=== PATIENT | male | born 1965 | race Caucasian/White ===

== ENCOUNTER 2016-12-19 17:37 | Emergency (ER) | payer OTHER ==
[2016-12-19] MEDS ORDERED: Sodium Chloride 0.9% 10 ML Syringe FLUSH PRN (17:50)
[2016-12-19] MEDS ORDERED: Sodium Chloride 0.9% 2.5 ML Syringe FLUSH PRN (17:50)
[2016-12-19] MEDS ORDERED: Aspirin 81 MG Tab.Chew PO ONE (17:50)
[2016-12-19] MEDS ORDERED: fentaNYL 100 MCG/2 ML SDV IVPUSH ONE (17:50)
[2016-12-19] MEDS ORDERED: Acetaminophen 325 MG Tab PO ONE (17:50)
[2016-12-19] MEDS ORDERED: Sodium Chloride 0.9% 1,000 ML IV ONE ×2 (17:50→18:05)
[2016-12-19] MEDS: Nitroglycerin 0.4 MG Tab.SL SL PRN ×3 (17:55→18:05)
--- NOTE | 2016-12-19 18:09 | EDM.PDOC ---
ED HPI GENERAL MEDICAL PROBLEM - General Chief Complaint: Chest Pain Stated Complaint: CHEST PAIN/TROUBLE BREATHING Time Seen by Provider: 12/19/16 17:48 - History of Present Illness INITIAL COMMENTS - FREE TEXT/NARRATIVE: HISTORY AND PHYSICAL: History of present illness: Patient is a 51-year-old white male history of [id number] diabetes adjustments or other acute onset of chest pain is left-sided radiating somewhat to his left back with associated diaphoresis shortness of breath he has equivocal nausea no vomiting he denies palpitations he was scheduled for stress test next week for not feeling well generally. He denies prior coronary artery disease known to him or CVA. This pain is without palliating her and everything factors including position Review of systems: As per history of present illness and below otherwise all systems reviewed and negative. Past medical history: As per history of present illness and as reviewed below otherwise noncontributory. Surgical history: As per history of present illness and as reviewed below otherwise noncontributory. Social history: No reported history of drug or alcohol abuse. Family history: As per history of present illness and as reviewed below otherwise noncontributory. Physical exam: HEENT: Atraumatic, normocephalic, pupils reactive, negative for conjunctival pallor or scleral icterus, mucous membranes moist, throat clear, neck supple, nontender, trachea midline. Profuse diaphoresis noted Lungs: Clear to auscultation, breath sounds equal bilaterally, chest nontender. Heart: S1S2, regular, negative for clicks, rubs, or JVD. Abdomen: Soft, nondistended, nontender. Negative for masses or hepatosplenomegaly. Negative for costovertebral tenderness. Pelvis: Stable nontender. Genitourinary: Deferred. Rectal: Deferred. Extremities: Atraumatic, negative for cords or calf pain. Neurovascular unremarkable. Neuro: Awake, alert, oriented. Cranial nerves II through XII unremarkable. Cerebellum unremarkable. Motor and sensory unremarkable throughout. Exam nonfocal. Diagnostics: CBC CMP PT INR troponin d-dimer lactic acid blood culture x2 chest x-ray EKG Therapeutics: IV O2 monitor aspirin 324 mg sublingual mitral glycerin every 5x3 fentanyl 50 mcg IV Impression: #1 chest pain/acute coronary syndrome I discussed case with cardiology and faxed EKG for review patient will be transferred by air medical further interventions will be in consultation with cardiology Definitive disposition and diagnosis as appropriate pending reevaluation and review of above. - Related Data Allergies Allergy/AdvReac Type Severity Reaction Status Date / Time grass pollen-perennial rye, Allergy Mild Sneezing Verified 08/02/15 15:06 standar [grass poll-perennial rye,std] house dust Allergy Mild Sneezing Verified 08/02/15 15:06 oxycodone [Oxycodone] AdvReac Hallucinati Verified 08/02/15 15:06 ons Home Meds: Home Meds Ascorbate Calcium [Vitamin C] 500 mg PO DAILY@0600 06/02/14 [History] Cholecalciferol (Vitamin D3) [Vitamin D] 5,000 unit PO DAILY@0600 06/02/14 [ History] Cyanocobalamin (Vitamin B-12) [B-12] 1,000 mcg PO DAILY@0600 06/02/14 [History] Liraglutide [Victoza] 1.8 mg SUBCUT DAILY@0630 06/02/14 [History] Lisinopril [Prinivil] 20 mg PO DAILY@0600 06/02/14 [History] [place]olia-3/DHA/Epa/Fish Oil [Fish Oil 1,400 MG Softgel] 1,500 mg PO BID@0600,1800 06/02/14 [History] atorvaSTATin Calcium [Atorvastatin Calcium] 40 mg PO DAILY@0600 06/02/14 [ History] glipiZIDE [Glipizide ER] 5 mg PO DAILY@0600 06/02/14 [History] metFORMIN [Glucophage XR] 1,000 mg PO BID@0600,1800 06/02/14 [History] Vitamin B Complex & Vit C No.4 [Super B Complex] 150 mg PO DAILY 03/30/15 [ History] Past Medical History Other Gastrointestinal History: Heartburn Other Genitourinary History: Hernia Repair Social & Family History - Tobacco Use Smoking Status *Q: Former Smoker Years of Tobacco use: 20 Used Tobacco, but Quit: No Month Tobacco Last Used: 5 years ago Second Hand Smoke Exposure: No - Alcohol Use Days Per Week of Alcohol Use: 0 - Recreational Drug Use Recreational Drug Use: No Drug Use in Last 12 Months: No ED ROS GENERAL - Review of Systems Review Of Systems: ROS reveals no pertinent complaints other than HPI. ED EXAM, GENERAL - Physical Exam Exam: See Below (See dictation) Course - Orders/Labs/Meds Orders: Active Orders 24 hr Category Date Time Status Cardiac Monitoring [RC] . DIRECTED Care 12/19/16 17:49 Ordered EKG Documentation Completion [RC] STAT Care 12/19/16 17:49 Ordered Oxygen Therapy, ED [RC] ASDIRECTED Care 12/19/16 17:49 Ordered Chest 1V Frontal [CR] Stat Exams 12/19/16 17:50 Ordered B-TYPE NATRIURETIC PEPTIDE,BNP [CHEM] Stat Lab 12/19/16 17:49 Ordered CBC WITH AUTO DIFF [HEME] Stat Lab 12/19/16 17:49 Ordered COMPREHENSIVE METABOLIC PN,CMP [CHEM] Stat Lab 12/19/16 17:49 Ordered D-DIMER QUANTITATIVE [COAG] Stat Lab 12/19/16 17:49 Ordered INR,PT,PROTHROMBIN TIME [COAG] Stat Lab 12/19/16 17:49 Ordered TROPONIN I [CHEM] Stat Lab 12/19/16 17:49 Ordered Sodium Chloride 0.9% [Normal Saline] 1,000 ml Med 12/19/16 17:50 Ordered IV STAT Sodium Chloride 0.9% [Saline Flush] Med 12/19/16 17:50 Ordered 10 ml FLUSH ASDIRECTED PRN Sodium Chloride 0.9% [Saline Flush] Med 12/19/16 17:50 Ordered 2.5 ml FLUSH ASDIRECTED PRN Saline Lock Insert [OM.PC] Stat Oth 12/19/16 17:49 Ordered Medication Orders Sodium Chloride (Normal Saline) 1,000 mls @ 999 mls/hr IV STAT ONE Stop: 12/19/16 18:50 Sodium Chloride (Saline Flush) 10 ml FLUSH ASDIRECTED PRN PRN Reason: Keep Vein Open Sodium Chloride (Saline Flush) 2.5 ml FLUSH ASDIRECTED PRN PRN Reason: Keep Vein Open Labs: Laboratory Tests 12/19/16 Range/Units 17:49 Lactate 2.7 H (0.20-2.00) mmol/L Meds: Medications Generic Name Dose Route Start Last Admin Trade Name Freq PRN Reason Stop Dose Admin Sodium Chloride 1,000 mls @ 999 mls/hr 12/19/16 17:50 Normal Saline IV 12/19/16 18:50 STAT ONE Sodium Chloride 10 ml 12/19/16 17:50 Saline Flush FLUSH ASDIRECTED PRN Keep Vein Open Sodium Chloride 2.5 ml 12/19/16 17:50 Saline Flush FLUSH ASDIRECTED PRN Keep Vein Open Discontinued Medications Generic Name Dose Route Start Last Admin Trade Name Bradley PRN Reason Stop Dose Admin Acetaminophen 325 mg 12/19/16 17:50 12/19/16 17:58 Tylenol PO 12/19/16 17:51 325 mg NOW ONE Administration Aspirin 324 mg 12/19/16 17:50 12/19/16 17:56 Aspirin PO 12/19/16 17:51 324 mg ONETIME ONE Administration Fentanyl 50 mcg 12/19/16 17:50 12/19/16 17:57 Sublimaze IVPUSH 12/19/16 17:51 50 mcg ONETIME ONE Administration Nitroglycerin 0.4 mg 12/19/16 17:50 Nitrostat SL 12/19/16 18:01 Q5M PRN Chest Pain Departure - Departure Time of Disposition: 18:08 Disposition: DC/Tfer to Acute Hospital 02 Condition: good Clinical Impression: Acute coronary syndrome Forms: ED Department Discharge - My Orders Last 24 Hours: My Active Orders 12/19/16 17:49 Cardiac Monitoring [RC] . DIRECTED EKG Documentation Completion [RC] STAT Oxygen Therapy, ED [RC] ASDIRECTED B-TYPE NATRIURETIC PEPTIDE,BNP [CHEM] Stat CBC WITH AUTO DIFF [HEME] Stat COMPREHENSIVE METABOLIC PN,CMP [CHEM] Stat D-DIMER QUANTITATIVE [COAG] Stat INR,PT,PROTHROMBIN TIME [COAG] Stat TROPONIN I [CHEM] Stat Saline Lock Insert [OM.PC] Stat 12/19/16 17:50 Chest 1V Frontal [CR] Stat Sodium Chloride 0.9% [Normal Saline] 1,000 ml IV STAT Sodium Chloride 0.9% [Saline Flush] 10 ml FLUSH ASDIRECTED PRN Sodium Chloride 0.9% [Saline Flush] 2.5 ml FLUSH ASDIRECTED PRN - Assessment/Plan Last 24 Hours: My Active Orders 12/19/16 17:49 Cardiac Monitoring [RC] . DIRECTED EKG Documentation Completion [RC] STAT Oxygen Therapy, ED [RC] ASDIRECTED B-TYPE NATRIURETIC PEPTIDE,BNP [CHEM] Stat CBC WITH AUTO DIFF [HEME] Stat COMPREHENSIVE METABOLIC PN,CMP [CHEM] Stat D-DIMER QUANTITATIVE [COAG] Stat INR,PT,PROTHROMBIN TIME [COAG] Stat TROPONIN I [CHEM] Stat Saline Lock Insert [OM.PC] Stat 12/19/16 17:50 Chest 1V Frontal [CR] Stat Sodium Chloride 0.9% [Normal Saline] 1,000 ml IV STAT Sodium Chloride 0.9% [Saline Flush] 10 ml FLUSH ASDIRECTED PRN Sodium Chloride 0.9% [Saline Flush] 2.5 ml FLUSH ASDIRECTED PRN
[2016-12-19] MEDS ORDERED: fentaNYL 100 MCG/2 ML SDV IVPUSH STA (18:19)
[2016-12-19 21:23] VITALS: BP 111/64
--- NOTE | 2016-12-22 09:36 | CR ---
EXAM DATE: 12/19/16 PATIENT'S AGE: 51 Patient: ANDREA PERES Facility: [place], [place] Site . Site : [id number] Study: XRay Chest [id number] 6:15:13 PM Ordering Physician: Chavo Shen Final Report: INDICATION: chest pain COMPARISON: Chest x-ray dated 02 August 2015. FINDINGS: Two portable chest x-rays show a normal cardiac silhouette. The lungs are hypoventilated and show mild bibasilar atelectasis. Sharp pleural margins. No pneumothorax. IMPRESSION: Hypoventilated lungs with bibasilar atelectasis. Dictated by Gera Vides MD @ 12/19/2016 6:30:02 PM Dictated by: Gera Vides MD @ 12/19/2016 18:30:11 (Electronic Signature) Report Signed by Proxy and Original Signed Document filed in the Medical Record. [facility]
== END 2016-12-19 18:40 ==
LOC: MW.ED 17:37
DX: I24.9 Acute ischemic heart disease, unspecified (principal); Z88.8 Allergy status to other drugs, medicaments and biological substances; Z79.899 Other long term (current) drug therapy; Z87.891 Personal history of nicotine dependence
CPT/HCPCS: 36415; 71010; 80053; 83605; 83880; 84484; 85025; 85379; 85610; 93005; 96360; 96361; 96374; 96376; 99285; A9270; J3010; J7040

== ENCOUNTER → 2017-01-09 | Outpatient (CLI) | payer OTHER ==
[2017-01-09 10:42] LABS: CHLORIDE,CL 99 mmol/L (98-110); SODIUM,NA 134 mmol/L (136-146)
== END ==
LOC: MW.CHFP 09:11
PROVIDERS: ATTEND Student in an Organized Health Care Education/Training Program
DX: R19.5 Other fecal abnormalities (principal); R11.0 Nausea
CPT/HCPCS: 36415; 80053; 83630; 85025; 87046; 87324; 87899

== ENCOUNTER 2018-12-03 06:21 | Day surgery (SDC) | payer OTHER ==
[~2018-12-03 06:21] MED LIST: Lactated Ringers 1,000 ML IV SCH
[2018-12-03] MEDS ORDERED: Midazolam 1 MG/ML 2 ML SDV ONE (07:19)
[2018-12-03] MEDS ORDERED: fentaNYL 100 MCG/2 ML SDV ONE (07:22)
[2018-12-03] MEDS ORDERED: Lidocaine 2% 5 ML SDV ONE (07:23)
[2018-12-03] MEDS ORDERED: Propofol 200 MG/20 ML SDV ONE ×3 (07:24→08:10)
--- NOTE | 2018-12-03 07:28 | PCM.PREANE ---
Preanesthetic Assessment - Anesthesia/Transfusion/Family Hx Anesthesia History: Prior Anesthesia Without Reaction Other Type of Anesthesia Reaction Comment: slow to wake up Family History of Anesthesia Reaction: No Transfusion History: No Prior Transfusion(s) - Review of Systems General: No Symptoms Pulmonary: No Symptoms Cardiovascular: No Symptoms Gastrointestinal: No Symptoms Neurological: No Symptoms Other: Reports: None - Physical Assessment NPO Status Date: 12/02/18 Height: 5 ft 10 in Weight: 107.955 kg ASA Class: 2 Mental Status: Alert & Oriented x3 Airway Class: Mallampati = 1 Dentition: Reports: Normal Dentition ROM/Head Extension: Full Lungs: Clear to Auscultation, Normal Respiratory Effort Cardiovascular: Regular Rate, Regular Rhythm - Allergies Allergies/Adverse Reactions: Allergies Allergy/AdvReac Type Severity Reaction Status Date / Time grass pollen-perennial rye, Allergy Mild Sneezing Verified 11/29/18 12:21 standar [grass poll-perennial rye,std] house dust Allergy Mild Sneezing Verified 11/29/18 12:21 oxycodone [From OxyContin] Allergy Hallucinati Verified 11/29/18 12:21 ons - Blood Blood Available: No - Anesthesia Plan Pre-Op Medication Ordered: None - Acknowledgements Anesthesia Type Planned: General Anesthesia, MAC Pt an Appropriate Candidate for the Planned Anesthesia: Yes Alternatives and Risks of Anesthesia Discussed w Pt/Guardian: Yes Pt/Guardian Understands and Agrees with Anesthesia Plan: Yes Additional Comments: PMH: dm2, htn, hld PLAN: mac/tiva PreAnesthesia Questionnaire HEENT History: Other HEENT History: wears glasses/contacts Cardiovascular History: Reports: High Cholesterol, Hypertension Respiratory History: Reports: Sleep Apnea Other Respiratory History: uses CPAP Gastrointestinal History: Reports: None Genitourinary History: Reports: None Musculoskeletal History: Reports: None Neurological History: Reports: None Psychiatric History: Reports: None Endocrine/Metabolic History: Reports: Diabetes, Type II, Obesity/BMI 30+ Hematologic History: Reports: None Immunologic History: Reports: None Oncologic (Cancer) History: Reports: None Dermatologic History: Reports: None - Past Surgical History Head Surgeries/Procedures: Reports: None HEENT Surgical History: Reports: None Cardiovascular Surgical History: Reports: None Respiratory Surgical History: Reports: Other (See Below) Other Respiratory Surgeries/Procedures: right thoracotomy "due to infection" GI Surgical History: Reports: Cholecystectomy, Colonoscopy, EGD, Hernia, Abdominal Male Surgical History: Reports: None Endocrine Surgical History: Reports: None Neurological Surgical History: Reports: None Musculoskeletal Surgical History: Reports: Shoulder Surgery Other Musculoskeletal Surgeries/Procedures:: Left RTCR Dermatological Surgical History: Reports: None - SUBSTANCE USE Smoking Status *Q: Never Smoker Recreational Drug Use History: No - HOME MEDS Home Medications: Home Meds Ascorbate Calcium [Vitamin C] 500 mg CHEW DAILY@0600 06/02/14 [History] Cyanocobalamin (Vitamin B-12) [B-12] 1,000 mcg PO DAILY@0600 06/02/14 [History] Lisinopril [Prinivil] 20 mg PO DAILY@0600 06/02/14 [History] [place]-3/DHA/Epa/Fish Oil [Fish Oil 1,400 MG Softgel] 1,000 mg PO DAILY 06/02/14 [History] atorvaSTATin Calcium [Atorvastatin Calcium] 40 mg PO DAILY@0600 06/02/14 [ History] glipiZIDE [Glipizide ER] 5 mg PO DAILY@0600 06/02/14 [History] metFORMIN [Glucophage XR] 1,000 mg PO BID@0600,1800 06/02/14 [History] Vitamin B Complex Vit C No.4 [Super B Complex] 150 mg PO DAILY 03/30/15 [History ] Cholecalciferol (Vitamin D3) [Vitamin D3] 400 units PO DAILY 11/29/18 [History] Empagliflozin [Jardiance] 25 mg PO DAILY 11/29/18 [History] Exenatide Microspheres [Bydureon Pen] 1 injection SUBCUT WEEKLY 11/29/18 [ History] - CURRENT (IN HOUSE) MEDS Current Meds: Current Medications Lactated Ringer's (Ringers, Lactated) 1,000 mls @ 125 mls/hr IV ASDIRECTED MASOUD Discontinued Medications Fentanyl (Sublimaze) Confirm Administered Dose 100 mcg .ROUTE .STK-MED ONE Stop: 12/03/18 07:23 Lidocaine (Xylocaine-Mpf 2%) Confirm Administered Dose 5 ml .ROUTE .STK-MED ONE Stop: 12/03/18 07:24 Midazolam HCl (Versed 1 Mg/Ml) Confirm Administered Dose 2 mg .ROUTE .STK-MED ONE Stop: 12/03/18 07:20 Propofol (Diprivan 20 Ml) Confirm Administered Dose 200 mg .ROUTE .STK-MED ONE Stop: 12/03/18 07:25 Propofol (Diprivan 20 Ml) Confirm Administered Dose 200 mg .ROUTE .STK-MED ONE Stop: 12/03/18 07:25
--- NOTE | 2018-12-03 08:31 | PCM.OPNOTE ---
- General Post-Op/Procedure Note Date of Surgery/Procedure: 12/03/18 Findings: see dict [id number] Pre Op Diagnosis: rectal bleed and change in bowel habits Post-Op Diagnosis: Same Anesthesia Technique: Moderate Sedation Primary Surgeon: Dex Hankins Pathology: egd bx Complications: None Condition: Good
[2018-12-03 08:32] VITALS: BP 114/73
--- NOTE | 2018-12-03 08:35 | PCM.POSTAN ---
POST ANESTHESIA ASSESSMENT - MENTAL STATUS Mental Status: Alert, Oriented - RESPIRATORY Respiratory Status: Respiratory Rate WNL, Airway Patent, O2 Saturation Stable - CARDIOVASCULAR CV Status: Pulse Rate WNL, Blood Pressure Stable - GASTROINTESTINAL GI Status: No Symptoms - PAIN Pain Score: 0 - POST OP HYDRATION Hydration Status: Adequate & Stable
--- NOTE | 2018-12-03 08:39 | PCM48HPAN ---
Post Anesthesia Note - EVALUATION WITHIN 48HRS OF ANESTHETIC Vital Signs in Normal Range: Yes Patient Participated in Evaluation: Yes Respiratory Function Stable: Yes Airway Patent: Yes Cardiovascular Function Stable: Yes Hydration Status Stable: Yes Pain Control Satisfactory: Yes Nausea and Vomiting Control Satisfactory: Yes Mental Status Recovered: Yes Resp Rate: 14
--- NOTE | 2018-12-03 15:21 | OR ---
SURGEON: Dex Hankins MD DATE OF PROCEDURE: 12/03/2018 PREOPERATIVE DIAGNOSIS: Rectal bleed and change in bowel habit. PROCEDURE PERFORMED: 1) EGD with biopsy and 2) colonoscopy DESCRIPTION OF PROCEDURE: EGD: The patient was taken to the endoscopy room, and with the LEAD DENTAL ASSISTANT, Diprivan was administered. A well-lubricated EGD scope was gently inserted through the oropharynx, down the esophagus, passing through the gastroesophageal junction, into the stomach. The mucosa was examined upon the passage. Any etiology will be noted. Once in the stomach, we continued to advance to the distal antrum, passed through the pylorus into the second portion of the duodenum. Again, the mucosa was examined for any abnormality and etiology. The scope was then retrieved back to the stomach and then retroflexed to look at the fundus of the stomach. If a biopsy was indicated, we will biopsy the antrum, body, and gastroesophageal junction. The air will be sucked out while the scope is retrieved to reduce the patient's discomfort. The patient tolerated the procedure well. There were no intraoperative complications. Dr. Hankins was present through the whole procedure. Prior to surgery, a time-out had been called, the patient identified, procedure identified and antibiotic administered. Colonoscopy: The patient was taken to the endoscopy room. A time out was called, patient identified, and procedure identified. Diprivan was then administrated. Patient went from awake to sleep, hearing doctor talking or door closing is normal. Perineum inspection and digital examination were then performed. A well-lubricated colonoscope was gently inserted through the rectum, advanced past the rectosigmoid junction, the descending colon, splenic flexure, transverse colon, hepatic flexure, ascending colon, arrived to the cecum. Cecum was identified as dictated in the finding. Then the scope was carefully withdrawn while attention was paid to the mucosal surface for any abnormality. Air will be sucked out during the scope withdrawal. At the rectum, retroflexed to examine any rectal diseases, fistula or hemorrhoids. Patient tolerated procedure well. There were no intraoperative complications, and Dr. Hankins was present throughout the whole procedure. FINDINGS: EGD findings: 1. The patient is easily sedated with LEAD DENTAL ASSISTANT and Diprivan, the patient is soundly snoring. 2. Oropharynx and proximal esophagus are free of disease. No stricture, inflammation, or varicosity. Distal esophagus at GE junction at 40 have a flame-like salmon-colored change, suggests significant acid reflux and in some area have a tinge of yellow either evolving esophageal ulcer or resolving esophageal ulcer. There is no danni ulcer or blood observed. Stomach rugae is normal in appearance and there is no blood, bile, or food observed. Antrum is totally normal. Duodenum is completely normal. Scope retrieved back to the stomach retroflexed look at the fundus of the stomach, there is no hiatal hernia. Biopsy done at body, GE junction, and antrum and sucked out the gas while scope pulling out and in the stomach body, there is some area which is also inflamed such as gastritis. Again, there is no blood, bile, or food observed during the whole procedure. Colonoscopy Findings: 1. The patient is easily sedated with LEAD DENTAL ASSISTANT and Diprivan. The patient is soundly snoring. 2. Bowel prep was average with some liquid stool, not too much and no semi- formed stool. 3. Colon is a little bit redundant and tortuous at the sigmoid area requiring some abdominal compression in order to get to the cecum and at that time, the patient had one brief episode like 1-2 seconds of tamara and immediately retrieved the scope, and the patient's resolved the tamara, and scope continued on. Cecum indicated by ileocecal fold, and one-to-one indentation, light emittance, and appendiceal orifice was not observed, in fact, cecum can only be observed at a distant. The patient does not have diverticulosis, polyp, mass, growth, inflammation, stricture, ulceration, AV malformation, blood or ulcer, none of those. The patient has moderate internal hemorrhoids. No external hemorrhoids. The patient would benefit from repeat colonoscopy in 10 years from today or if clinically indicated, otherwise. REFUGIO / MARSHALL /[id number] CHRIST
== END 2018-12-03 09:00 | disposition home or self-care (01) ==
LOC: MW.SDS 06:21
PROVIDERS: ATTEND Surgery
DX: K29.30 Chronic superficial gastritis without bleeding (principal); D64.9 Anemia, unspecified; E11.9 Type 2 diabetes mellitus without complications; K62.5 Hemorrhage of anus and rectum; K63.89 Other specified diseases of intestine; K64.8 Other hemorrhoids; K21.9 Gastro-esophageal reflux disease without esophagitis; I10 Essential (primary) hypertension; Z91.048 Other nonmedicinal substance allergy status; Z88.8 Allergy status to other drugs, medicaments and biological substances; Z79.84 Long term (current) use of oral hypoglycemic drugs; Z79.899 Other long term (current) drug therapy
CPT/HCPCS: 43239; 45378; 82962; 88305; 88312; J2001; J2250; J2704; J3010; J7120; 00813

== ENCOUNTER 2019-09-30 06:39 | Day surgery (SDC) | payer OTHER ==
[~2019-09-30 06:39] MED LIST changes: +ceFAZolin 2 GM in Premix Bag 1 BAG IV ONE
[2019-09-30] MEDS ORDERED: fentaNYL 100 MCG/2 ML SDV ONE (07:29)
[2019-09-30] MEDS ORDERED: Midazolam 1 MG/ML 2 ML SDV ONE (07:29)
[2019-09-30] MEDS ORDERED: Propofol 200 MG/20 ML SDV ONE (07:29)
[2019-09-30] MEDS ORDERED: Dexamethasone 4 MG/ML 5 ML MDV ONE (07:30)
[2019-09-30] MEDS ORDERED: Bupivacaine 25%/EPINEPHrine/PF 30 ML ONE (07:30)
[2019-09-30] MEDS ORDERED: Ondansetron 4 MG/2 ML SDV ONE (07:30)
[2019-09-30] MEDS ORDERED: Ketorolac 30 MG/ML SDV ONE (07:30)
[2019-09-30] MEDS ORDERED: Rocuronium 100 MG/10 ML Syringe ONE (07:30)
[2019-09-30] MEDS ORDERED: Lidocaine 2% 5 ML SDV ONE (07:30)
--- NOTE | 2019-09-30 07:57 | PCM.PREANE ---
Preanesthetic Assessment - Anesthesia/Transfusion/Family Hx Anesthesia History: Prior Anesthesia Without Reaction Other Type of Anesthesia Reaction Comment: slow to wake up Transfusion History: No Prior Transfusion(s) - Review of Systems General: No Symptoms Pulmonary: No Symptoms Cardiovascular: No Symptoms Gastrointestinal: No Symptoms Neurological: No Symptoms Other: Reports: None - Physical Assessment NPO Status Date: 09/29/19 NPO Status Time: 20:00 Vital Signs: Last Vital Signs Temp 36.2 C 09/30/19 06:56 Pulse 81 09/30/19 06:56 Resp 16 09/30/19 06:56 BP 109/70 09/30/19 06:56 Pulse Ox 96 09/30/19 06:56 Height: 1.78 m Weight: 112.491 kg ASA Class: 2 Mental Status: Alert & Oriented x3 Airway Class: Mallampati = 3 Dentition: Reports: Normal Dentition Thyro-Mental Finger Breadths: 3 Mouth Opening Finger Breadths: 3 ROM/Head Extension: Full Lungs: Clear to Auscultation, Normal Respiratory Effort - Lab Values: Laboratory Last Values POC Glucose 127 mg/dL (60-110) H 09/30/19 07:11 - Allergies Allergies/Adverse Reactions: Allergies Allergy/AdvReac Type Severity Reaction Status Date / Time grass pollen-perennial rye, Allergy Mild Sneezing Verified 09/26/19 11:22 standar [grass poll-perennial rye,std] house dust Allergy Mild Sneezing Verified 09/26/19 11:22 oxycodone [From OxyContin] Allergy Hallucinati Verified 09/26/19 11:22 ons - Blood Blood Available: No - Acknowledgements Anesthesia Type Planned: General Anesthesia Pt an Appropriate Candidate for the Planned Anesthesia: Yes Alternatives and Risks of Anesthesia Discussed w Pt/Guardian: Yes Pt/Guardian Understands and Agrees with Anesthesia Plan: Yes PreAnesthesia Questionnaire HEENT History: Reports: Allergic Rhinitis, Other (See Below) Other HEENT History: wears glasses/contacts Cardiovascular History: Reports: High Cholesterol, Hypertension Respiratory History: Reports: Sleep Apnea (CPAP), Other (See Below) Other Respiratory History: hx of Empyema-resolved after thoracotomy, uses CPAP Gastrointestinal History: Reports: Chronic Diarrhea, GERD Genitourinary History: Reports: None Musculoskeletal History: Reports: Back Pain, Chronic, Fracture Other Musculoskeletal History: hx of fx finger and lumbar vertebrate Neurological History: Reports: Concussion Psychiatric History: Reports: None Endocrine/Metabolic History: Reports: Diabetes, Type II ([id number]), Obesity /BMI 30+ Hematologic History: Reports: None Immunologic History: Reports: None Oncologic (Cancer) History: Reports: None Dermatologic History: Reports: None - Past Surgical History Head Surgeries/Procedures: Reports: None HEENT Surgical History: Reports: Oral Surgery Other HEENT Surgeries/Procedures: has 1 upper dental implant Cardiovascular Surgical History: Reports: None Respiratory Surgical History: Reports: Thoracotomy Other Respiratory Surgeries/Procedures: hx of pneumothorax from empyema- had Thoracotomy GI Surgical History: Reports: Cholecystectomy, Colonoscopy, EGD, Hernia, Abdominal Other GI Surgeries/Procedures: hx of Umbilical hernia repair Male Surgical History: Reports: None Endocrine Surgical History: Reports: None Neurological Surgical History: Reports: None Musculoskeletal Surgical History: Reports: Shoulder Surgery Other Musculoskeletal Surgeries/Procedures:: Left RTCR Dermatological Surgical History: Reports: None - SUBSTANCE USE Smoking Status *Q: Former Smoker Tobacco Use Within Last Twelve Months: No (QUIT chewing tobacco "at least 7 years ago") Days Per Week of Alcohol Use: 1 (etoh "minimal") Recreational Drug Use History: No - HOME MEDS Home Medications: Home Meds [place]-3/DHA/Epa/Fish Oil [Fish Oil 1,400 MG Softgel] 1,000 mg PO DAILY 06/02/14 [History] atorvaSTATin Calcium [Atorvastatin Calcium] 40 mg PO DAILY@0600 06/02/14 [ History] glipiZIDE [Glipizide ER] 5 mg PO DAILY@0600 06/02/14 [History] lisinopriL [Prinivil] 20 mg PO DAILY@0600 06/02/14 [History] metFORMIN [Glucophage XR] 1,000 mg PO BID@0600,1800 06/02/14 [History] Cholecalciferol (Vitamin D3) [Vitamin D3] 400 units PO DAILY 11/29/18 [History] Empagliflozin [Jardiance] 25 mg PO DAILY 11/29/18 [History] Exenatide Microspheres [Bydureon Pen] 1 injection SUBCUT WEEKLY 11/29/18 [ History] Omeprazole Magnesium [Prilosec Otc] 20 mg PO DAILY 09/26/19 [History] - CURRENT (IN HOUSE) MEDS Current Meds: Current Medications Lactated Ringer's (Ringers, Lactated) 1,000 mls @ 125 mls/hr IV ASDIRECTED MASOUD Last Admin: 09/30/19 06:55 Dose: 125 mls/hr Discontinued Medications Dexamethasone (Dexamethasone) Confirm Administered Dose 20 mg .ROUTE .STK-MED ONE Stop: 09/30/19 07:31 Fentanyl (Sublimaze) Confirm Administered Dose 100 mcg .ROUTE .STK-MED ONE Stop: 09/30/19 07:30 Cefazolin Sodium/Dextrose 2 gm (/ Premix) 50 mls @ 100 mls/hr IV ONETIME ONE Stop: 09/30/19 05:29 Bupivacaine HCl/Epinephrine Bitart (Sensorc Mpf 0.25%-Epi [id number]) Confirm Administered Dose 30 mls @ as directed .ROUTE .STK-MED ONE Stop: 09/30/19 07:31 Acetaminophen (Ofirmev) Confirm Administered Dose 100 mls @ as directed .ROUTE .STK-MED ONE Stop: 09/30/19 07:40 Ketorolac Tromethamine (Toradol) Confirm Administered Dose 30 mg .ROUTE .STK- MED ONE Stop: 09/30/19 07:31 Lidocaine (Xylocaine-Mpf 2%) Confirm Administered Dose 5 ml .ROUTE .STK-MED ONE Stop: 09/30/19 07:31 Midazolam HCl (Versed 1 Mg/Ml) Confirm Administered Dose 2 mg .ROUTE .STK-MED ONE Stop: 09/30/19 07:30 Ondansetron HCl (Zofran) Confirm Administered Dose 4 mg .ROUTE .STK-MED ONE Stop: 09/30/19 07:31 Propofol (Diprivan 20 Ml) Confirm Administered Dose 200 mg .ROUTE .STK-MED ONE Stop: 09/30/19 07:30 Rocuronium [place] (Zemuron) Confirm Administered Dose 100 mg .ROUTE .STK-MED ONE Stop: 09/30/19 07:31 Succinylcholine Chloride (Succinylcholine Chloride) Confirm Administered Dose 200 mg .ROUTE .STK-MED ONE Stop: 09/30/19 07:31
[2019-09-30] MEDS ORDERED: ceFAZolin/Dextrose,Iso-Osmotic 2 GM/50 ML Duplex Bag IV ONE (08:04)
[2019-09-30] MEDS ORDERED: fentaNYL 100 MCG/2 ML SDV IVPUSH PRN (08:36)
[2019-09-30] MEDS ORDERED: Ondansetron 4 MG/2 ML SDV IVPUSH PRN (08:36)
[2019-09-30] MEDS ORDERED: 50% Dextrose in Water 50 ML Syringe IVPUSH PRN (08:37)
[2019-09-30] MEDS ORDERED: Albuterol 0.083% 2.5 MG/3 ML Neb Soln NEB PRN (08:37)
[2019-09-30] MEDS ORDERED: Naloxone 0.4 MG/ML Syringe IVPUSH PRN (08:37)
[2019-09-30] MEDS ORDERED: EPINEPHrine 1:10,000 1 MG/10 ML Syringe IVPUSH PRN (08:37)
[2019-09-30] MEDS ORDERED: Atropine 0.1 MG/ML 10 ML Syringe IVPUSH PRN ×2 (08:37)
[2019-09-30] MEDS ORDERED: Phenylephrine/Normal Saline 100 MCG/ML 10 ML Syringe ONE (09:09)
[2019-09-30] MEDS ORDERED: Glycopyrrolate 0.2 MG/ML SDV ONE (09:41)
[2019-09-30] MEDS ORDERED: Neostigmine Methylsulfate 1 MG/ML 5 ML Syringe ONE (09:41)
[2019-09-30] MEDS: HYDROmorphone 2 MG/ML Syringe IVPUSH PRN ×4 (10:31→10:56)
[2019-09-30] MEDS: fentaNYL 100 MCG/2 ML SDV IVPUSH PRN ×2 (10:40→11:20)
[2019-09-30] MEDS ORDERED: Acetaminophen/HYDROcodone 325-5 MG Tab PO PRN (11:01)
[2019-09-30] MEDS ORDERED: Morphine 4 MG/ML Syringe IVPUSH PRN (11:02)
[2019-09-30] MEDS: HYDROmorphone 2 MG/ML Syringe IVPUSH ONE ×2 (11:24→11:34)
--- NOTE | 2019-09-30 12:01 | PCM.POSTAN ---
POST ANESTHESIA ASSESSMENT - MENTAL STATUS Mental Status: Alert, Oriented - VITAL SIGNS Vital Signs: Last Vital Signs Temp 97.9 F 09/30/19 10:20 Pulse 85 09/30/19 11:45 Resp 12 09/30/19 11:45 BP 129/76 09/30/19 11:45 Pulse Ox 92 L 09/30/19 11:45 - RESPIRATORY Respiratory Status: Respiratory Rate WNL, Airway Patent, O2 Saturation Stable - CARDIOVASCULAR CV Status: Pulse Rate WNL, Blood Pressure Stable - GASTROINTESTINAL GI Status: No Symptoms - POST OP HYDRATION Hydration Status: Adequate & Stable
--- NOTE | 2019-09-30 14:10 | PCM.OPNOTE ---
- General Post-Op/Procedure Note Date of Surgery/Procedure: 09/30/19 Operative Procedure(s): recurring incisional hernia repair w mesh Findings: 5X4 cm hernia defect, repaired w custom made, dulex mesh, 10 X 8 cm using 0 ethabond; op note dictated Pre Op Diagnosis: recurrent incarcerated incisional hernia Post-Op Diagnosis: Same Anesthesia Technique: General ET Tube Primary Surgeon: Dex Hankins Complications: None Condition: Good Free Text/Narrative:: Intake & Output 09/29/19 09/30/19 09/30/19 22:59 06:59 14:59 Intake Total 185 Balance 185
[2019-09-30 14:26] VITALS: BP 128/74; PULSE 79
--- NOTE | 2019-09-30 15:36 | OR ---
SURGEON: Dex Hankins MD DATE OF PROCEDURE: 09/30/2019 PREOPERATIVE DIAGNOSIS: Incarcerated recurrent incisional hernia. POSTOPERATIVE DIAGNOSIS: Incarcerated recurrent incisional hernia. PROCEDURE PERFORMED: Repair with mesh. PRIMARY SURGEON: Dex Hankins MD. COMPLICATIONS: None. FINDINGS: Kind of small recurrent incisional hernia. Because it is already two-time recurrent, repair with a custom-made Dulex mesh. DESCRIPTION OF PROCEDURE: The patient was taken to the operating room, placed in supine position. Upon induction of general endotracheal anesthesia, the patient's abdomen prepped and draped in a sterile fashion. Time-out was being called, the patient identified, procedure identified, antibiotic given. Procedure then started. The Vi-Drape was administered before mesh placement, and after assessment of appropriate landmark, an incision right on top of the umbilicus was made, a little bit extended above and below, and carefully dissected through the subcutaneous fat. Located hernia and it was opened up and had omentum inside. Was carefully pushed back to the abdominal cavity and the hernia sac was amputated. The hernia sac was carefully cut all the way towards the edge to ensure that this was fascia instead of scar tissue and the subsequent opening was measured to be 5 x 4 cm, 5 is horizontal and 4 is vertical. A custom-made mesh of 7.5 x 10 was used for the repair. The mesh used was Dulex and it was anchored to the fascia using 0 Ethibond. Upon finish, there was no blue stitch and the edge was good. 2-0 Vicryl was used to reduce the space to decrease risk of infection or seroma. Another 2-0 Vicryl was used to pull the skin together and skin approximated by use of skin staple and followed with appropriate dressing. The patient was awakened, extubated, and transferred to Recovery in hemodynamically stable condition. The patient tolerated the procedure well. There were no intraoperative complications. Dr. Hankins was present throughout whole procedure. REFUGIO / MARSHALL /[id number]
== END 2019-09-30 14:49 | disposition home or self-care (01) ==
LOC: MW.SDS 06:39
PROVIDERS: ATTEND Surgery
DX: K43.0 Incisional hernia with obstruction, without gangrene (principal); I10 Essential (primary) hypertension; E78.00 Pure hypercholesterolemia, unspecified; E11.9 Type 2 diabetes mellitus without complications; K21.0 Gastro-esophageal reflux disease with esophagitis; G47.30 Sleep apnea, unspecified; E66.9 Obesity, unspecified; Z68.35 Body mass index [BMI] 35.0-35.9, adult; Z87.891 Personal history of nicotine dependence; Z79.84 Long term (current) use of oral hypoglycemic drugs; Z79.899 Other long term (current) drug therapy; Z91.09 Other allergy status, other than to drugs and biological substances; Z88.5 Allergy status to narcotic agent; Z99.89 Dependence on other enabling machines and devices; Z98.890 Other specified postprocedural states
CPT/HCPCS: 49566; 49568; 82962; J0131; J0330; J0690; J1170; J2001; J2250; J2370; J2405; J2704; J3010; J3490; J7120; J1100; J1885

== ENCOUNTER 2021-04-30 20:00 | Emergency (ER) | payer OTHER ==
[2021-04-30] MEDS ORDERED: Sodium Chloride 0.9% 2.5 ML Syringe FLUSH PRN (21:34)
[2021-04-30] MEDS ORDERED: Sodium Chloride 0.9% 10 ML Syringe FLUSH PRN (21:34)
--- NOTE | 2021-04-30 22:49 | CR ---
Indication: Dizziness Technique: Chest 1 view Comparison: May 08, 2019 Findings/Impression: Normal cardiomediastinal silhouette. Low lung volumes. No focal infiltrate, effusion, or pneumothorax. No acute osseous abnormality. Stable elevation of the right hemidiaphragm. Dictated by Mallory Renteria MD @ 04/30/2021 10:46:[address] Mallory Renteria @ Apr 30 2021 10:46PM
--- NOTE | 2021-04-30 22:51 | EDM.PDOC ---
ED HPI GENERAL MEDICAL PROBLEM - General Chief Complaint: General Stated Complaint: NAUSEA, LIGHTHEADED, LOW BLOOD PRESSURE, Time Seen by Provider: 04/30/21 22:24 - History of Present Illness INITIAL COMMENTS - FREE TEXT/NARRATIVE: 56-year-old male prior history of empyema 4 to 5 years ago presenting with syncopal episode. 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 EMS was called at the time his blood pressure was low his blood sugar was in the 200s. He was given Zofran and 500 cc of IV fluid he declined transport at that time but was encouraged to present on his own. He had no palpitations no severe chest pain no headache or neck pain. He has had no recent cough or fever or shortness of breath. He does report a prior episode similar to this a few years ago he was admitted for observation at that time but as far as he is aware nothing was found at that point. He does have a primary care provider. - Related Data Allergies Allergy/AdvReac Type Severity Reaction Status Date / Time grass pollen-perennial rye, Allergy Mild Sneezing Verified 09/26/19 11:22 standar [grass poll-perennial rye,std] house dust Allergy Mild Sneezing Verified 09/26/19 11:22 oxycodone [From OxyContin] Allergy Hallucinati Verified 09/26/19 11:22 ons Home Meds: Home Meds [place]-3/DHA/Epa/Fish Oil [Fish Oil 1,400 MG Softgel] 1,000 mg PO DAILY 06/02/14 [History] atorvaSTATin Calcium [Atorvastatin Calcium] 40 mg PO DAILY@0600 06/02/14 [His tory] glipiZIDE [Glipizide ER] 5 mg PO DAILY@0600 06/02/14 [History] lisinopriL [Prinivil] 20 mg PO DAILY@0600 06/02/14 [History] metFORMIN [Glucophage XR] 1,000 mg PO BID@0600,1800 06/02/14 [History] Cholecalciferol (Vitamin D3) [Vitamin D3] 400 units PO DAILY 11/29/18 [History] Empagliflozin [Jardiance] 25 mg PO DAILY 11/29/18 [History] Exenatide Microspheres [Bydureon Pen] 1 injection SUBCUT WEEKLY 11/29/18 [History] Omeprazole Magnesium [Prilosec Otc] 20 mg PO DAILY 09/26/19 [History] Past Medical History HEENT History: Reports: Allergic Rhinitis, Other (See Below) Other HEENT History: wears glasses/contacts Cardiovascular History: Reports: High Cholesterol, Hypertension Respiratory History: Reports: Sleep Apnea, Other (See Below) Other Respiratory History: hx of Empyema-resolved after thoracotomy, doesn't use CPAP at this time due to recall Gastrointestinal History: Reports: Chronic Diarrhea, GERD Genitourinary History: Reports: None Musculoskeletal History: Reports: Back Pain, Chronic, Fracture Other Musculoskeletal History: hx of fx finger and lumbar vertebrate Neurological History: Reports: Concussion Psychiatric History: Reports: None Endocrine/Metabolic History: Reports: Diabetes, Type II, Obesity/BMI 30+ Hematologic History: Reports: None Immunologic History: Reports: None, AIDS Oncologic (Cancer) History: Reports: None Dermatologic History: Reports: None - Infectious Disease History Infectious Disease History: Reports: Chicken Pox - Past Surgical History Head Surgeries/Procedures: Reports: None HEENT Surgical History: Reports: Oral Surgery Other HEENT Surgeries/Procedures: has 1 upper dental implant Cardiovascular Surgical History: Reports: None Respiratory Surgical History: Reports: Thoracotomy Other Respiratory Surgeries/Procedures: hx of pneumothorax from empyema- had Thoracotomy GI Surgical History: Reports: Cholecystectomy, Colonoscopy, EGD, Hernia, Abdominal Other GI Surgeries/Procedures: hx of Umbilical hernia repair Male Surgical History: Reports: None Endocrine Surgical History: Reports: None Neurological Surgical History: Reports: None Musculoskeletal Surgical History: Reports: Shoulder Surgery Other Musculoskeletal Surgeries/Procedures:: Left RTCR Dermatological Surgical History: Reports: None Social & Family History - Family History Family Medical History: No Pertinent Family History - Tobacco Use Tobacco Use Status *Q: Never Tobacco User Second Hand Smoke Exposure: No - Caffeine Use Caffeine Use: Reports: Coffee - Recreational Drug Use Recreational Drug Use: No ED ROS GENERAL - Review of Systems Review Of Systems: See Below Free Text/Narrative/Comment: General: No fever. Skin: No rash. Eyes: No vision problems. ENT: No sore throat. Neck: No neck stiffness. Respiratory: No shortness of breath. Cardiac: Per HPI Gastrointestinal: + nausea, no vomiting or abdominal pain. Musculoskeletal: No myalgias/arthralgias. Neurologic: No headache. ED EXAM, GENERAL - Physical Exam Exam: See Below Free Text/Narrative:: General: No fever. Skin: No rash. Eyes: No vision problems. ENT: No sore throat. Neck: No neck stiffness. Respiratory: No shortness of breath. Cardiac: No chest pain. Gastrointestinal: No nausea, vomiting or abdominal pain. Urinary: No dysuria. Musculoskeletal: No myalgias/arthralgias. Neurologic: No headache. #1 Interpretation EKG Date: 04/30/21 Time: 22:51 EKG Interpretation Comments: Sinus rhythm rate of 78 normal axis and intervals no acute ischemia Course - Vital Signs Last Recorded V/S: Last Vital Signs Temp 97.7 F 04/30/21 22:22 Pulse 79 04/30/21 22:22 Resp 14 04/30/21 22:22 BP 105/69 04/30/21 22:22 Pulse Ox 96 04/30/21 22:22 Orthostatic Blood Pressure [ 119/65 Sitting] Orthostatic Blood Pressure [ 112/65 Supine] - Orders/Labs/Meds Orders: Active Orders 24 hr Category Date Time Status Orthostatic Vital Signs [RC] ASDIRECTED Care 04/30/21 21:34 Active Sodium Chloride 0.9% [Normal Saline] 1,000 ml Med 04/30/21 23:30 Active IV .Bolus Sodium Chloride 0.9% [Saline Flush] Med 04/30/21 21:34 Active 10 ml FLUSH ASDIRECTED PRN Sodium Chloride 0.9% [Saline Flush] Med 04/30/21 21:34 Active 2.5 ml FLUSH ASDIRECTED PRN Saline Lock Insert [OM.PC] Stat Oth 04/30/21 21:34 Ordered Medication Orders Sodium Chloride (Normal Saline) 1,000 mls @ 999 mls/hr IV .Bolus ONE Stop: 05/01/21 00:30 Last Admin: 04/30/21 23:36 Dose: 999 mls/hr Documented by: [email or web address] Sodium Chloride (Sodium Chloride 0.9% 10 Ml Syringe) 10 ml FLUSH ASDIRECTED PRN PRN Reason: Keep Vein Open Last Admin: 04/30/21 22:41 Dose: 10 ml Documented by: ARIANE Sodium Chloride (Sodium Chloride 0.9% 2.5 Ml Syringe) 2.5 ml FLUSH ASDIRECTED PRN PRN Reason: Keep Vein Open Last Admin: 04/30/21 22:41 Dose: 2.5 ml Documented by: ARIANE Labs: Laboratory Tests 04/30/21 04/30/21 04/30/21 Range/Units 22:29 22:32 22:32 WBC 12.93 H (4.0-11.0) K/uL RBC 6.00 H (4.50-5.90) M/uL Hgb 18.1 H (13.0-17.0) g/dL Hct 50.6 H (38.0-50.0) % MCV 84.3 (80.0-98.0) fL MCH 30.2 (27.0-32.0) pg MCHC 35.8 (31.0-37.0) g/dL RDW Std Deviation 42.8 (28.0-62.0) fl RDW Coeff of Destiny 14 (11.0-15.0) % Plt Count 262 (150-400) K/uL MPV 10.20 (7.40-12.00) fL Neut % (Auto) 73.1 (48.0-80.0) % Lymph % (Auto) 20.0 (16.0-40.0) % [place] % (Auto) 6.2 (0.0-15.0) % Eos % (Auto) 0.5 (0.0-7.0) % Baso % (Auto) 0.2 (0.0-1.5) % Neut # (Auto) 9.5 H (1.4-5.7) K/uL Lymph # (Auto) 2.6 H (0.6-2.4) K/uL [place] # (Auto) 0.8 (0.0-0.8) K/uL Eos # (Auto) 0.1 (0.0-0.7) K/uL Baso # (Auto) 0.0 (0.0-0.1) K/uL Nucleated RBC % 0.0 /100WBC Nucleated RBCs # 0 K/uL Sodium 134 L (136-148) mmol/L Potassium 4.7 (3.5-5.1) mmol/L Chloride 96 L (98-107) mmol/L Carbon Dioxide 26.6 (21.0-32.0) mmol/L BUN 25 H (7.0-18.0) mg/dL Creatinine 1.7 H (0.8-1.3) mg/dL Est Cr Clr Drug Dosing 52.91 mL/min Estimated GFR (MDRD) 42.2 ml/min Glucose 169 H (74-106) mg/dL POC Glucose 193 H (70-99) mg/dL Calcium 9.5 (8.5-10.1) mg/dL Magnesium (1.8-2.4) mg/dL Total Bilirubin 1.1 H (0.2-1.0) mg/dL AST 27 (15-37) IU/L ALT 52 (14-63) IU/L Alkaline Phosphatase 78 (46-116) U/L Troponin I <0.050 (0.000-0.056) ng/mL Total Protein 8.0 (6.4-8.2) g/dL Albumin 4.7 (3.4-5.0) g/dL Globulin 3.3 (2.6-4.0) g/dL Albumin/Globulin Ratio 1.4 (0.9-1.6) 04/30/21 Range/Units 22:32 WBC (4.0-11.0) K/uL RBC (4.50-5.90) M/uL Hgb (13.0-17.0) g/dL Hct (38.0-50.0) % MCV (80.0-98.0) fL MCH (27.0-32.0) pg MCHC (31.0-37.0) g/dL RDW Std Deviation (28.0-62.0) fl RDW Coeff of Destiny (11.0-15.0) % Plt Count (150-400) K/uL MPV (7.40-12.00) fL Neut % (Auto) (48.0-80.0) % Lymph % (Auto) (16.0-40.0) % [place] % (Auto) (0.0-15.0) % Eos % (Auto) (0.0-7.0) % Baso % (Auto) (0.0-1.5) % Neut # (Auto) (1.4-5.7) K/uL Lymph # (Auto) (0.6-2.4) K/uL [place] # (Auto) (0.0-0.8) K/uL Eos # (Auto) (0.0-0.7) K/uL Baso # (Auto) (0.0-0.1) K/uL Nucleated RBC % /100WBC Nucleated RBCs # K/uL Sodium (136-148) mmol/L Potassium (3.5-5.1) mmol/L Chloride (98-107) mmol/L Carbon Dioxide (21.0-32.0) mmol/L BUN (7.0-18.0) mg/dL Creatinine (0.8-1.3) mg/dL Est Cr Clr Drug Dosing mL/min Estimated GFR (MDRD) ml/min Glucose (74-106) mg/dL POC Glucose (70-99) mg/dL Calcium (8.5-10.1) mg/dL Magnesium 2.2 (1.8-2.4) mg/dL Total Bilirubin (0.2-1.0) mg/dL AST (15-37) IU/L ALT (14-63) IU/L Alkaline Phosphatase (46-116) U/L Troponin I (0.000-0.056) ng/mL Total Protein (6.4-8.2) g/dL Albumin (3.4-5.0) g/dL Globulin (2.6-4.0) g/dL Albumin/Globulin Ratio (0.9-1.6) Meds: Medications Generic Name Dose Route Start Last Admin Trade Name Freq PRN Reason Stop Dose Admin Sodium Chloride 1,000 mls @ 999 mls/hr 04/30/21 23:30 04/30/21 23:36 Normal Saline IV 05/01/21 00:30 999 mls/hr .Bolus ONE Administration Sodium Chloride 10 ml 04/30/21 21:34 04/30/21 22:41 Sodium Chloride 0.9% 10 Ml Syringe FLUSH 10 ml ASDIRECTED PRN Administration Keep Vein Open Sodium Chloride 2.5 ml 04/30/21 21:34 04/30/21 22:41 Sodium Chloride 0.9% 2.5 Ml Syringe FLUSH 2.5 ml ASDIRECTED PRN Administration Keep Vein Open Departure - Departure Time of Disposition: 23:58 Disposition: Home, Self-Care 01 Condition: Good Clinical Impression: Dehydration Syncope Qualifiers: Syncope type: unspecified Qualified Code(s): R55 - Syncope and collapse - Discharge Information *PRESCRIPTION DRUG MONITORING PROGRAM REVIEWED*: Not Applicable *COPY OF PRESCRIPTION DRUG MONITORING REPORT IN PATIENT OSCAR: Not Applicable Instructions: Syncope, Dehydration, Adult Referrals: Jason Darby MD [Primary Care Provider] - 1 Week Forms: ED Department Discharge Additional Instructions: Your EKG today showed no problem with your heart. Your labs showed findings of dehydration particularly in your blood counts and your kidneys. You were given IV fluid. I encourage you to follow-up with your primary care doctor. If your symptoms recur or worsen or you have any other new symptoms that concern you please call your doctor or return to the ER. The following information is given to patients seen in the emergency department who are being discharged to home. This information is to outline your options for follow-up care. We provide all patients seen in our emergency department with a follow-up referral. The need for follow-up, as well as the timing and circumstances, are variable depending upon the specifics of your emergency department visit. If you don't have a primary care physician on staff, we will provide you with a referral. We always advise you to contact your personal physician following an emergency department visit to inform them of the circumstance of the visit and for follow-up with them and/or the need for any referrals to a consulting specialist. The emergency department will also refer you to a specialist when appropriate. This referral assures that you have the opportunity for follow-up care with a specialist. All of these measure are taken in an effort to provide you with optimal care, which includes your follow-up. Under all circumstances we always encourage you to contact your private physician who remains a resource for coordinating your care. When calling for follow-up care, please make the office aware that this follow-up is from your recent emergency room visit. If for any reason you are refused follow-up, please contact the [facility] Emergency Department at and asked to speak to the emergency department charge nurse. Sepsis Event Note (ED) - Focused Exam Vital Signs: Vital Signs Temp Pulse Resp BP Pulse Ox 04/30/21 22:22 97.7 F 79 14 105/69 96 - My Orders Last 24 Hours: My Active Orders 04/30/21 23:30 Sodium Chloride 0.9% [Normal Saline] 1,000 ml IV .Bolus - Assessment/Plan Last 24 Hours: My Active Orders 04/30/21 23:30 Sodium Chloride 0.9% [Normal Saline] 1,000 ml IV .Bolus Assessment:: 56-year-old male presenting with syncope with prodrome. Multiple etiologies considered. The prodrome would make sudden malignant arrhythmia less likely. Dehydration is a consideration relevant blood work pending patient was outside working in the heat for most of the day though he reports he was drinking water. He is somewhat hypertensive. IV fluid will be provided. Labs are pending and will reassess. [id number]: Patient's labs show hemoconcentration and minimal NADJA with a creatinine up from 1.5-1.7. 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 His troponin and other blood work is unremarkable he has had no telemetry events while here. Patient feels "pretty good" at this time. He was given a liter of normal saline. He ambulates with a steady gait. Given all these factors I think he is appropriate for discharge with follow-up with his primary care provider.
[2021-04-30 23:00] LABS: BLOOD UREA NITROGEN,BUN 25 mg/dL (7.0-18.0); CARBON DIOXIDE,CO2 26.6 mmol/L (21.0-32.0); CHLORIDE,CL 96 mmol/L (98-107); GLUCOSE RANDOM 169 mg/dL (74-106); POTASSIUM,K 4.7 mmol/L (3.5-5.1); SODIUM,NA 134 mmol/L (136-148)
[2021-04-30] MEDS ORDERED: Sodium Chloride 0.9% 1,000 ML IV ONE (23:30)
[2021-05-01 00:39] VITALS: BP 106/68; PULSE 81
== END 2021-05-01 00:48 | disposition home or self-care (01) ==
LOC: MW.ED 20:00
DX: R55 Syncope and collapse (principal); E86.0 Dehydration; E11.9 Type 2 diabetes mellitus without complications; E66.9 Obesity, unspecified; K21.9 Gastro-esophageal reflux disease without esophagitis; Z68.41 Body mass index [BMI] 40.0-44.9, adult; Z88.5 Allergy status to narcotic agent; Z91.09 Other allergy status, other than to drugs and biological substances; Z91.048 Other nonmedicinal substance allergy status; Z79.899 Other long term (current) drug therapy
CPT/HCPCS: 36415; 71045; 80053; 82947; 83735; 84484; 85025; 93005; 99284; J7030